=== PATIENT | male | born 1975 | race Hispanic/Latino ===

== ENCOUNTER → 2019-09-15 | Day surgery (SDC) | payer OTHER ==
[~2019-09-15] MED LIST: ACETAMINOPHEN 1000 MG/100 ML IV ONE; BACITRACIN 50,000 UNIT VIAL ONE; BUPIVACAINE HCL 0.5% INJ 30 ML VIAL INJ ONE; CEFAZOLIN SOD 1 GM/NS 50ML 100 ML IV ONE; DEXAMETHASONE SOD PHOS INJ 4 MG/ML VIAL ONE; ETOMIDATE 2 MG/ML 10 ML INJ IV ONE; FENTANYL CITRATE/PF 100MCG/2 ML INJ ONE; GLYCOPYRROLATE INJ 0.2 MG/ML VIAL ONE; KETAMINE HCL INJ 50 MG/ML 10 ML VIAL ONE; LIDOCAINE HCL 2% LOCAL INJ 5 ML SDV VIAL INJ ONE; METOCLOPRAMIDE HCL 10 MG/2ML VIAL ONE; MIDAZOLAM HCL 2 MG/2 ML VIAL ONE; MORPHINE SULFATE INJ 10 MG/ML ONE; ONDANSETRON HCL INJ 2MG/ML 2ML 2 MG/ML VIAL ONE; PROPOFOL IV EMULSION 10 MG/ML 20 ML VIAL ONE; SCOPOLAMINE 1.5 MG PATCH ONE; SEVOFLURANE INHAL SOLN 250 ML PEN BTL ONE
[2019-09-15 16:05] VITALS: BP 157/92
--- NOTE | 2019-09-20 15:39 | Operative Report ---
DATE OF PROCEDURE: 09/15/2019 SURGEON: Dwayne Cancino MD PREOPERATIVE DIAGNOSIS: Displaced right distal radius fracture. POSTOPERATIVE DIAGNOSIS: Displaced right distal radius fracture. OPERATION PROCEDURE PERFORMED: The patient underwent open reduction and internal fixation of the displaced right distal radius fracture. CLINICAL ASSISTANT PROFESSOR: None. ANESTHESIA: General endotracheal intubation anesthesia. IV FLUIDS: Per the Anesthesia record. BRIEF DESCRIPTION OF THE PATIENT'S OPERATIVE PROCEDURE: Mr. Og was taken to the operating room and placed in supine position on the operating table. Following induction of general anesthesia as well as endotracheal intubation, the patient's right upper extremity was examined under anesthesia. He was found to have bruising and swelling involving his right wrist joint. Fluoroscopic evaluation of the wrist demonstrated displacement in the lateral plane with widening and shortening of the articular surface dorsally. The patient's upper extremity was prepped and draped in standard surgical fashion. The case was begun by creating incision over the dorsum of the wrist, and this incision was carried through skin only. Blunt dissection was used to deepen the incision to the level of the dorsal extensor tendon sheath. The fourth dorsal compartment was opened and the common extensor tendons were mobilized out of the fourth compartment. The third compartment was also opened and a long extensor for the thumb was also mobilized at this time. Further dissection identified the patient's displaced entry. The fracture was manipulated under direct vision and the dorsally translated fracture fragment was advanced distally and held in place with a single pin. An appropriate plate was chosen and contoured to the dorsum of the patient's wrist. That plate was then affixed to the wrist. Combinations of cortical and locking screws. This resulted in an anatomic realignment of the wrist injury. This was confirmed both under direct vision as well as using fluoroscopy. The wound was then copiously irrigated. The fourth compartment was loosely closed. The remaining soft tissues were closed in a multilayer fashion. Sterile dressings were applied, and multilayer closure was performed. Sterile dressings were applied as well as a well-padded sugar-tong splint. The patient was then awakened and taken to the postanesthesia care in stable condition. MD WILLIE Melgoza/JUSTEN /[id number]
== END | disposition home or self-care (01) ==
LOC: OR 09:29
PROVIDERS: ATTEND Specialist
DX: S52.501A Unspecified fracture of the lower end of right radius, initial encounter for closed fracture (principal); E66.9 Obesity, unspecified; V53.5XXA Driver of pick-up truck or van injured in collision with car, pick-up truck or van in traffic accident, initial encounter; Y92.410 Unspecified street and highway as the place of occurrence of the external cause; Z01.810 Encounter for preprocedural cardiovascular examination; Z01.812 Encounter for preprocedural laboratory examination; Z11.59 Encounter for screening for other viral diseases
CPT/HCPCS: 76000; 87635; 93005; C1713; J0690; J1100; J2001; J2250; J2270; J2405; J2765; J3010

== ENCOUNTER 2019-11-08 11:30 | Outpatient (RCR) | payer OTHER | END 2019-11-11 | LOC: OT 11:30 | PROVIDERS: ATTEND Specialist | DX: S52.501D Unspecified fracture of the lower end of right radius, subsequent encounter for closed fracture with routine healing (principal); M25.531 Pain in right wrist; M25.631 Stiffness of right wrist, not elsewhere classified; R53.1 Weakness ==

== ENCOUNTER → 2019-12-12 | Outpatient (RCR) | payer OTHER | LOC: OT 11-14 07:56 | PROVIDERS: ATTEND Specialist | DX: S62.101A Fracture of unspecified carpal bone, right wrist, initial encounter for closed fracture (principal); M24.641 Ankylosis, right hand ==

== ENCOUNTER 2019-12-23 08:00 | Outpatient (RCR) | payer OTHER | END 2020-01-11 | LOC: OT 08:00 | PROVIDERS: ATTEND Specialist | DX: S62.101A Fracture of unspecified carpal bone, right wrist, initial encounter for closed fracture (principal); M24.641 Ankylosis, right hand ==